=== PATIENT | male | born 1955 | race Caucasian/White ===

== ENCOUNTER → 2020-11-29 | Outpatient (CLI) | payer MEDICARE | LOC: KOH-I 16:00 | DX: R31.9 Hematuria, unspecified (principal); N20.0 Calculus of kidney; R10.9 Unspecified abdominal pain; K86.89 Other specified diseases of pancreas | CPT/HCPCS: 74176 ==

== ENCOUNTER → 2021-04-30 | Outpatient (CLI) | payer MEDICARE | LOC: KOH-I 11:22 | DX: D17.1 Benign lipomatous neoplasm of skin and subcutaneous tissue of trunk (principal) | CPT/HCPCS: 76604 ==